=== PATIENT | female | born 1995 | race Hispanic/Latino ===

== ENCOUNTER 2024-06-25 15:27 | Emergency (ER) | payer BC ==
--- OUTSIDE RECORDS SUMMARY | 2024-06-25 15:30 | XMS REPORT | Continuity of Care Document ---
Author Name Unknown Address [address] [facility] [place] [address] [facility] thconnect Address [address] [facility] [address] [place] [address] Care Team Providers Care Typesetter Apprentice Name Role Phone Joseph HessShe Primary Care Physician [phone] Doctor Unassigned, Fossil Attending Clinician U navailable Lab, Adc Fam Pob I Attending Clinician Unavailab Benja Long Attending Clinician [phone] BENJA IRIZARRY Attending Clinician Unavailable Payers Payer Name Policy Type Policy Number Effective Date Expirati on Date Source Allergies, Adverse Reactions, Alerts Allergy Name Allergy Type Status Severity Reaction(s) Onset Date Inactive Date Treating Clinician Comments Source NO KNOWN ALLERGIE S Drug Class Active [facility] Social History Social Habit Start Date Stop Date Quantity Comments Source Sexual orientation U [facility] Exposure to SARS-CoV-2 (event) 2019-11-04 00:00:00 2019-12-04 15:05:00 Yes [facility] Sex Assigned At 1995 00:00:00 1995 00:00:00 [facility] Smoking Status Start Date Stop Date Source Tobacco smoking consumption unknown [facility] Encounters Start Date/Time End Date/Time Encounter Type Admission Type Attending Clinicians Care Facility Care Department Encounter ID Source 2019-12-06 00:00:00 2019-12-06 00:00:00 Patient Secure Msg Doctor Unassigned, Fossil [facility] [id number] [facility] 2019-12-04 15:02:30 2019-12-04 15:22:30 Laboratory Only Lab, Adc [facility] [id number] [facility] 2019-12-04 15:00:00 2019-12-04 15:00:00 Outpatient BENJA GRIFFIN [facility] [id number] [facility]
[2024-06-25] MEDS ORDERED: LORAZEPAM 1 MG TABLET ONE (15:53)
[2024-06-25 15:55] LABS: Absolute Basophils 0.1 K/uL (0-0.5); Absolute Eosinophils 0.2 K/uL (0-0.5); Absolute Lymphocytes (CBC) 1.7 K/uL (0.7-4.9); Absolute Monocytes 0.9 K/uL (0.1-1.3); Absolute Neutrophil 14.5 K/uL (1.8-8.0); Basophils % 0.4 % (0-1.3); Eosinophils % 1.1 % (0-4.4); Hematocrit 38.7 % (36.0-45.0); Hemoglobin 12.7 g/dL (12.0-15.0); Lymphocytes % 9.5 % (15.3-44.8); MCH 29.5 pg (27.0-35.0); MCHC 32.7 g/dL (32.0-36.0); MCV 90.2 fL (80-100); MPV 8.3 fL (7.6-11.3); Monocytes % 5.1 % (3.3-12.3); Neutrophils % 83.9 % (41.7-73.7); Platelets 338 thou/uL (152-406); RBC Red Blood Cell Count 4.29 M/uL (3.86-4.86); Red Cell Distribution Width 14.1 % (12.1-15.2)
[2024-06-25 16:13] LABS: Anion Gap 8.6 mEq/L (5.0-15.0); Potassium 3.6 mEq/L (3.5-5.1); Troponin High Sensitivity 4.3 pg/mL (<58.9)
--- NOTE | 2024-06-25 16:41 | RAD REPORT ---
EXAM: Chest Single View HISTORY: 29 years Female CHEST PAIN COMPARISON: None. FINDINGS: LUNGS/PLEURA: The lungs are clear. No pleural effusions or pneumothorax. No pulmonary edema. CARDIAC/MEDIASTINUM: The cardiac silhouette is within normal limits. UPPER ABDOMEN: No significant abnormality. BONES: No acute abnormality. LINES/TUBES/OTHER: N/A IMPRESSION: No evidence of acute cardiopulmonary disease.
[2024-06-25 17:02] LABS: Influenza A Ag Negative; Influenza B Ag Negative; SARS-CoV-2 Antigen Rapid Res Negative (Negative)
[2024-06-25 17:03] LABS: Specific Gravity > 1.030 (1.005-1.030); Sqamous Epithelial <5 /HPF (None Seen); Urine Bacteria <20 /HPF (<20); Urine Bilirubin NEGATIVE (Negative); Urine Blood 3+ (OVER) (Negative); Urine Clarity Extremely Turbid (Clear); Urine Color Yellow (Yellow); Urine Crystals Unidentified Few /HPF (None Seen); Urine Culture Reflex Order NOT NEEDED; Urine Glucose NEGATIVE (Negative); Urine Ketones NEGATIVE (Negative); Urine Micro Reflex YN NO BILL MICROSCOPIC; Urine Mucus Slight /HPF (None Seen); Urine Nitrite NEGATIVE (Negative); Urine Protein 1+ (Negative); Urine RBC >50 /HPF (None Seen); Urine Urobilinogen Normal (Normal); Urine WBC Clump Rare /HPF (None Seen); Urine Yeast (Budding) Trace /HPF (None Seen)
--- NOTE | 2024-06-25 17:09 | ER ---
Nurse's Notes [facility] Name: Vianney See Age: 29 yrs Sex: Female : 1995 Arrival Date: 06/25/2024 Time: 15:27 Bed 9 Private MD: Diagnosis: Acute anxiety, resolved Presentation: 06/25 15:34 Chief complaint: EMS states: toned out for palpitations and sob. 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 Patient is feeling better now but states she is weak and shaky feeling. BGL 147. NSR on EKG. Coronavirus screen: Vaccine status: Patient reports receiving the 2nd dose of the covid vaccine. Ebola Screen: No symptoms or risks identified at this time. Initial Sepsis Screen: Does the patient meet any 2 criteria? No. Patient's initial sepsis screen is negative. Does the patient have a suspected source of infection? No. Patient's initial sepsis screen is negative. Risk Assessment: Do you want to hurt yourself or someone else? Patient reports no desire to harm self or others. Onset of symptoms was June 25, 2024 at 14:45. 15:34 Method Of Arrival: EMS: [facility] mn1 15:34 Acuity: MARY 3 me1 Triage Assessment: 15:36 General: Appears in no apparent distress. Behavior is calm, cooperative, appropriate me1 for age, Reports. General: Reports fatigue for 0-12 hours. Pain: Denies pain. EENT: No signs and/or symptoms were reported regarding the EENT system. Neuro: Neuro: Level of Consciousness is awake, alert, obeys commands, Oriented to person, place, time, situation, Appropriate for age. Cardiovascular: Reports palpitations, shortness of breath, Patient's skin is warm and dry. 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 GI: No signs and/or symptoms were reported involving the gastrointestinal system. : No signs and/or symptoms were reported regarding the genitourinary system. Derm: Skin is intact, is healthy with good turgor, Skin is pink, warm \T\ dry. reports diaphoresis when heart was racing and she was sob. Musculoskeletal: No signs and/or symptoms reported regarding the musculoskeletal system. 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 - Infectious Disease History:: Denies. - Social history:: Smoking status: Patient denies any tobacco usage or history of. Screenin:38 [facility] ED Fall Risk Assessment (Adult) History of falling in the last 3 months, me1 including since admission No falls in past 3 months (0 pts) Confusion or Disorientation No (0 pts) Intoxicated or Sedated No (0 pts) Impaired Gait No (0 pts) Mobility Assist Device Used No (0 pt) Altered Elimination No (0 pt) Score/Fall Risk Level 0 - 2 = Low Risk Maintained a safe environment, Provided non-skid footwear, Hourly rounding (assess needs \T\ fall precautionary measures) done. Abuse screen: Denies threats or abuse. Nutritional screening: No deficits noted. Tuberculosis screening: No symptoms or risk factors identified. Assessment: 15:38 General: See triage assessment. me1 Vital Signs: 15:34 BP 106 / 76; Pulse 79; Resp 17; Temp 98.2; Pulse Ox 99% ; Weight 88.45 kg; Height 5 ft. me1 2 in. ; Pain 0/10; 16:30 BP 108 / 81; Pulse 62; Resp 16; Pulse Ox 100% ; me1 17:22 BP 113 / 73; Pulse 68; Resp 16; Temp 98.4; Pulse Ox 100% ; me1 15:34 Body Mass Index 35.67 (88.45 kg, 157.48 cm) me1 15:34 Pain Scale: Adult me1 ED Course: 15:30 Patient arrived in ED. sb4 15:30 Marybel Ratliff PA-C is PHCP. sb4 15:30 Lorenzo Whiting MD is Attending Physician. sb4 15:34 Shasha Singleton, SINDI is Primary Nurse. me1 15:36 Triage completed. me1 15:36 Arm band placed on Patient placed in an exam room. me1 15:38 Patient has correct armband on for positive identification. Bed in low position. Call me1 light in reach. Side rails up X 1. Provided Education on: POC. Verbalized understanding.. Client placed on continuous cardiac and pulse oximetry monitoring. NIBP monitoring applied. vehicle monitor technician on. Pulse ox on. NIBP on. 15:38 No provider procedures requiring assistance completed. me1 15:49 Basic Metabolic Panel Sent. me1 15:49 CBC with Diff Sent. me1 15:49 Troponin HS Sent. me1 15:50 Test, Serum Sent. me1 16:11 EKG done, by ED staff, reviewed by Marybel Ratliff PA-C. me1 16:18 XRAY Chest (1 view) In Process Unspecified. EDMS 16:34 COVID-19 Ag + Flu A+B Ag Sent. me1 16:35 COVID swab sent to lab. Flu and/or RSV swab sent to lab. me1 16:56 UAM Sent. me1 16:57 Initial lab(s) drawn, by me, sent to lab. Urine collected: clean catch specimen, me1 cloudy, martinez colored. 17:22 IV discontinued, intact, bleeding controlled, No redness/swelling at site. Pressure me1 dressing applied. Administered Medications: 15:55 Drug: LORazepam PO 1 mg PO once Route: PO; me1 16:56 Follow up: Response: No adverse reaction; Anxiety decreased me1 Medication: 15:38 VIS not applicable for this client. me1 Outcome: 17:09 Discharge ordered by . [email or web address] 17:22 Discharged to home ambulatory, with significant other, me1 17:22 Condition: stable 17:22 Discharge instructions given to patient, significant other, Instructed on discharge instructions, follow up and referral plans. Demonstrated understanding of instructions, follow-up care, 17:23 Patient left the ED. me1 Signatures: Dispatcher [employer] Marybel Almonte PA-C PA-C sb4 Eddleman, Michelle, RN RN me1
--- NOTE | 2024-06-25 17:09 | EDPHYS ---
Physician Documentation [facility] Name: Vianney See Age: 29 yrs Sex: Female : 1995 Arrival Date: 06/25/2024 Time: 15:27 Bed 9 Private MD: ED Physician Lorenzo Whiting HPI: 06/25 15:37 This 29 yrs old Female presents to ER via EMS with complaints of weakness. sb4 15:37 Patient states that she was in a work meeting today when she started to feel very hot, sb4 like her heart was racing, and like it was hard for her to catch her breath. She steps outside and called an ambulance for help. States that she is feeling better now, just feels weak. States that she had another episode of this a long time ago denies any history of anxiety or any diagnosed medical conditions. Denies any recent illnesses. Does state that the anniversary of her mother passing is coming up soon. 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 - Infectious Disease History:: Denies. - Social history:: Smoking status: Patient denies any tobacco usage or history of. ROS: 15:37 Constitutional: Negative for fever, chills, and weight loss, sb4 15:37 Neuro: Positive for weakness, 15:37 All other systems are negative, Exam: 15:37 Head/Face: Normocephalic, atraumatic. Eyes: Extra-ocular motions intact. Periorbital sb4 areas with no swelling, redness, or edema. ENT: Mucous membranes moist. Cardiovascular: Regular rate and rhythm with a normal S1 and S2. Respiratory: No increased work of breathing, no retractions or nasal flaring. Abdomen/GI: Soft, non-tender, no distension. Skin: Warm, dry with normal turgor. Normal color with no rashes, no lesions, and no evidence of cellulitis. 15:37 Constitutional: The patient appears alert, awake, anxious, Vital Signs: 15:34 BP 106 / 76; Pulse 79; Resp 17; Temp 98.2; Pulse Ox 99% ; Weight 88.45 kg; Height 5 ft. me1 2 in. ; Pain 0/10; 16:30 BP 108 / 81; Pulse 62; Resp 16; Pulse Ox 100% ; me1 17:22 BP 113 / 73; Pulse 68; Resp 16; Temp 98.4; Pulse Ox 100% ; me1 15:34 Body Mass Index 35.67 (88.45 kg, 157.48 cm) me1 15:34 Pain Scale: Adult me1 MDM: 15:30 Medical Screening Exam initiated sb4 19:28 Data reviewed: vital signs, nurses notes, EMS record, lab test result(s), EKG, sb4 radiologic studies, and as a result, I will discharge patient. Counseling: I had a detailed discussion with the patient and/or guardian regarding the historical points, exam findings, and any diagnostic results supporting the discharge/admit diagnosis, lab results, radiology results, the need for outpatient follow up, for definitive care, to return to the emergency department if symptoms worsen or persist or if there are any questions or concerns that arise at home. ED course: Leukocytosis likely secondary to acute stress. No other signs of any infection on her examination. She reports feeling better. Will discharge home with follow-up and return precautions. 06/25 15:31 Order name: Basic Metabolic Panel; Complete Time: 16:15 4 06/25 15:31 Order name: CBC with Diff; Complete Time: 15:58 sb4 06/25 15:31 Order name: Troponin HS; Complete Time: 16:15 sb4 06/25 15:31 Order name: Test, Serum; Complete Time: 16:09 sb4 06/25 16:15 Order name: UAM; Complete Time: 17:03 4 06/25 16:18 Order name: COVID-19 Ag + Flu A+B Ag; Complete Time: 17:03 sb4 06/25 15:31 Order name: XRAY Chest (1 view); Complete Time: 16:41 sb4 06/25 15:31 Order name: Cardiac monitoring; Complete Time: 16:11 sb4 06/25 15:31 Order name: EKG - Nurse/Tech; Complete Time: 16:08 sb4 06/25 15:31 Order name: IV Saline Lock; Complete Time: 15:49 sb4 06/25 15:31 Order name: Labs collected and sent; Complete Time: 15:49 sb4 06/25 15:31 Order name: O2 Per Protocol; Complete Time: 15:49 sb4 06/25 15:31 Order name: O2 Sat Monitoring; Complete Time: 15:49 sb4 EC:08 Rate is 71 beats/min. Rhythm is irregular, Sinus arrythmia. IN interval is normal at sb4 148 msec. QRS interval is normal at 78 msec. QT interval is normal at 402 msec. No Q waves. T waves are Normal. No ST changes noted. Clinical impression: Sinus arrythmia. Interpreted by me. Reviewed by me. Administered Medications: 15:55 Drug: LORazepam PO 1 mg PO once Route: PO; me1 16:56 Follow up: Response: No adverse reaction; Anxiety decreased me1 Disposition: 18:16 Co-signature as Attending Physician, Lorenzo Whiting MD I reviewed the patient's care rn provided by the Advanced Practice Provider and agree with the diagnosis and treatment plan. Disposition Summary: 06/25/24 17:09 Discharge Ordered Notes: Location: Home sb4 Problem: new sb4 Symptoms: have improved sb4 Condition: Stable sb4 Diagnosis - Acute anxiety, resolved sb4 Followup: sb4 - With: Emergency Department - When: As needed - Reason: Worsening of condition Discharge Instructions: - Discharge Summary Sheet sb4 - Managing Anxiety, Adult sb4 Forms: - Work release form sb4 - Patient Portal Instructions sb4 - Leadership Thank You Letter sb4 Signatures: Dispatcher [employer] EDLorenzo Higuera MD MD rn Brown, Sophia, PA-C PAErnesto sb4 Shasha Singleton RN RN me1 Corrections: (The following items were deleted from the chart) 15:31 15:31 BASIC METABOLIC PANEL+C.LAB.BRZ ordered. EDMS EDMS 15:31 15:31 CBC+H.LAB.BRZ ordered. EDMS EDMS 15:31 15:31 Troponin High Sensitivity+C.LAB.BRZ ordered. EDMS EDMS 15:31 15:31 TEST, SERUM+SC.LAB.BRZ ordered. EDMS EDMS 15:31 15:31 Chest Single View+RAD.RAD.BRZ ordered. EDIA EDMS 15:40 15:37 This 29 yrs old Female presents to ER via EMS with unknown complaint. sb4sb4
[2024-06-25 17:51] VITALS: O2SAT 100
[2024-06-25 17:52] VITALS: BP 113/73; TEMP 98.4
--- NOTE | 2024-06-26 12:12 | EKG ---
Test Date: 2024-06-25 Test Time: 16:06:24 Brush Cleaner: JIN MEASUREMENT RESULTS: Intervals: Rate: 71 WY: 148 QRSD: 78 QT: 402 QTc: 436 [place]: P: 10 WY: 148 QRS: 6 T: 27 INTERPRETIVE STATEMENTS: Sinus rhythm with marked sinus arrhythmia Otherwise normal ECG Compared to ECG 11/11/2013 17:52:07 No significant changes Electronically Signed On 06-26-24 12:10:44 LAYOUT DESIGNER by Jose Langston
== END 2024-06-25 17:23 | disposition home or self-care (01) ==
LOC: ER 15:27
DX: F41.9 Anxiety disorder, unspecified (principal); R53.1 Weakness; Z11.52 Encounter for screening for COVID-19
CPT/HCPCS: 36415; 71045; 80048; 81001; 84484; 84703; 85025; 87428; 93005; 99284